=== PATIENT | female | born 1960 | race Caucasian/White ===

== ENCOUNTER 2017-04-17 10:07 | Day surgery (SDC) | payer BC ==
[~2017-04-17] VITALS: Ht 165.1 cm; Wt 77.3 kg
[~2017-04-17 10:07] MED LIST: ALPR1TAB2 PO; AMIT150T PO; CELE200C PO; DULO60CA7 PO; ESOM40CA PO; ESTROGEN PO; IBUP200T48 PO; OXYC1TAB7 PO; OXYC20TA2 PO; PREG150C PO; TIZA4TAB PO
[2017-04-17 10:36] VITALS: BP 142/87
[2017-04-17] MEDS: LACTATED RINGERS 1,000 ML IV SCH (11:00)
[2017-04-17] MEDS ORDERED: BUPIVACAINE/PF-EPI 0.5% 1:200K ONE (12:38)
[2017-04-17] MEDS ORDERED: FENTANYL PF 250 MCG/5ML ONE (13:11)
[2017-04-17] MEDS ORDERED: MIDAZOLAM 1 MG/ML, 2ML ONE (13:11)
[2017-04-17] MEDS ORDERED: PROPOFOL 10 MG/ML, 20ML ONE (13:20)
[2017-04-17] MEDS ORDERED: NEOSTIGMINE 1 MG/ML, 10ML ONE (13:20)
[2017-04-17] MEDS ORDERED: ROCURONIUM 10 MG/ML ONE (13:20)
[2017-04-17] MEDS ORDERED: CEFAZOLIN 1,000 MG ONE (13:20)
[2017-04-17] MEDS ORDERED: GLYCOPYRROLATE 0.2MG/1ML ONE (13:20)
[2017-04-17] MEDS ORDERED: METOPROLOL 1 MG/ML, 5ML ONE (13:20)
[2017-04-17] MEDS ORDERED: DEXAMETHASONE 4 MG/ML, 1ML ONE (13:20)
[2017-04-17] MEDS ORDERED: ONDANSETRON 2MG/ML, 2ML ONE ×2 (13:20→14:14)
[2017-04-17] MEDS ORDERED: HYDROmorphone 1 MG/ML, 1ML ONE (13:33)
[2017-04-17] MEDS ORDERED: BUPIVACAINE/PF-EPI 0.5% 1:200K INFIL ONE (13:41)
[2017-04-17] MEDS ORDERED: ACETAMINOPHEN 650 MG/20.3 ML UDC ONE (14:14)
[2017-04-17] MEDS ORDERED: FENTANYL PF 100 MCG/2ML ONE (14:14)
[2017-04-17] MEDS ORDERED: OXYcodone 5 MG/5 ML ORAL.SOL UDC ONE (14:15)
[2017-04-17] MEDS: FENTANYL PF 100 MCG/2ML IV PRN ×2 (14:23→14:39)
[2017-04-17] MEDS ORDERED: HYDROmorphone 1 MG/ML, 1ML IV PRN (14:30)
[2017-04-17] MEDS ORDERED: PROMETHAZINE 25 MG/ML, 1ML IV PRN (14:30)
[2017-04-17] MEDS ORDERED: hydrALAzine 20 MG/ML, 1ML IV PRN (14:30)
[2017-04-17] MEDS ORDERED: ALBUTEROL SULFATE 2.5 MG/3 ML NPPB PRN (14:30)
[2017-04-17] MEDS ORDERED: METOPROLOL 1 MG/ML, 5ML IV PRN (14:30)
[2017-04-17] MEDS ORDERED: KETOROLAC 30 MG/1 ML IV PRN (14:30)
[2017-04-17] MEDS ORDERED: ACETAMINOPHEN 325 MG TABLET PO PRN (14:30)
[2017-04-17] MEDS ORDERED: OXYcodone 5 MG/5 ML ORAL.SOL UDC PO PRN (14:30)
[2017-04-17] MEDS ORDERED: MEPERIDINE/PF 25MG/0.5ML IVPush PRN (14:30)
== END 2017-04-17 16:05 ==
LOC: OUT 10:07
PROVIDERS: ATTEND Surgery
DX: R10.84 Generalized abdominal pain (principal); K21.9 Gastro-esophageal reflux disease without esophagitis; M79.7 Fibromyalgia; F17.200 Nicotine dependence, unspecified, uncomplicated
CPT/HCPCS: 44180; J0690; J1100; J1170; J2250; J2405; J2704; J2710; J3010; J7120; J3490

== ENCOUNTER → 2018-08-14 | Outpatient (CLI) | payer BC ==
[~2018-08-14] MED LIST changes: -IBUP200T48 PO; +IBUP200T49 PO; +OMNIPAQUE 350 MG/ML, 100ML BOTTLE ONE
== END | disposition home or self-care (01) ==
LOC: RAD 14:51
PROVIDERS: ATTEND Nurse Practitioner Family
DX: R11.2 Nausea with vomiting, unspecified (principal); R10.9 Unspecified abdominal pain
CPT/HCPCS: 74177; Q9967